=== PATIENT | female | born 1975 | race Caucasian/White ===

== ENCOUNTER 2020-06-18 10:54 | Emergency (ER) | payer BC ==
[~2020-06-18] VITALS: Ht 160 cm; Wt 56.7 kg
[2020-06-18 10:57] VITALS: BP_SYST 136
[2020-06-18] MEDS ORDERED: KETOROLAC TROMETHAMINE 60 MG/2 ML VIAL IM ONE ×2 (11:15→11:39)
--- NOTE | 2020-06-18 11:25 | NUR ---
AMBULATED TO BED 3
--- NOTE | 2020-06-18 11:26 | NUR ---
AMBULATED TO X-RAY
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
--- NOTE | 2020-06-18 11:35 | NUR ---
ER Dr. Castelan at bedside examining patient.
--- NOTE | 2020-06-18 11:41 | NUR ---
PT BACK FROM X-RAY
--- NOTE | 2020-06-18 12:46 | NUR ---
Patient given written and verbal discharge instructions and verbalizes understanding. ER MD discussed with patient the results and treatment provided. Patient in stable condition. ID arm band removed. Rx of motrin, tramadol given. Patient educated on pain management and to follow up with PMD. Pain Scale 0/10. Opportunity for questions provided and answered. Medication side effect fact sheet provided.
[2020-06-18 12:47] VITALS: BP_SYST 131
== END 2020-06-18 12:47 | disposition home or self-care (01) ==
LOC: SED 10:54
DX: S42.012A Anterior displaced fracture of sternal end of left clavicle, initial encounter for closed fracture (principal); V29.9XXA Motorcycle rider (driver) (passenger) injured in unspecified traffic accident, initial encounter; Y93.89 Activity, other specified; Y92.89 Other specified places as the place of occurrence of the external cause; Y99.8 Other external cause status
CPT/HCPCS: 29105; 71045; 73000; 73030; 81025; 96372; 99284; J1885